=== PATIENT | female | born 1990 | race Caucasian/White ===

== ENCOUNTER 2018-01-08 05:43 | Emergency (ER) | payer MEDICAID ==
[~2018-01-08] VITALS: Ht 162.6 cm; Wt 119.3 kg
[2018-01-08 05:49] VITALS: Ht 162.6 cm; Wt 119.3 kg
[2018-01-08 06:36] LABS: CALCIUM 8.7 mg/dL (8.5-10.1); CHLORIDE SERUM 105 mmol/L (98-107); CREATININE SERUM 0.7 mg/dL (0.6-1.0); GFR1 > 60 mL/min; GLUCOSE SERUM 110 mg/dL (74-106); POTASSIUM SERUM 3.7 mmol/L (3.5-5.1); SODIUM SERUM 142 mmol/L (136-145)
[2018-01-08 06:40] LABS: BASOPHIL % 0.6 % (0-2); PLATELET COUNT 267 x10^3mcL (130-400); RED CELL DISTRIBUTION WIDTH 14.4 % (11.5-14.5)
[2018-01-08 06:41] LABS: ALKALINE PHOSPHATASE 86 U/L (46-116); ALT/SGPT 27 U/L (14-59); AMYLASE 48 U/L (25-115); AST/SGOT 13 U/L (15-37); BILIRUBIN TOTAL 0.1 mg/dL (0.20-1.00); LIPASE 133 IU/L (73-393); TOTAL PROTEIN, SERUM 7.3 g/dL (6.4-8.2)
[2018-01-08 06:46] LABS: ALBUMIN 3.3 g/dL (3.4-5.0)
[2018-01-08 08:27] VITALS: BP 123/67
== END 2018-01-08 08:27 | disposition home or self-care (01) ==
LOC: ED 05:43
PROVIDERS: Specialist
DX: K80.50 Calculus of bile duct without cholangitis or cholecystitis without obstruction (principal)
CPT/HCPCS: 36415; 83880; Q0092